=== PATIENT | male | born 1930 | race African-American/Black ===

== ENCOUNTER 2019-01-09 11:31 | Inpatient (IN) | payer OTHER ==
[~2019-01-09] VITALS: Ht 185.4 cm; Wt 88.5 kg
[2019-01-09 11:39] VITALS: BP 125/78
--- NOTE | 2019-01-09 11:40 | NUR ---
88 YO MALE BIB EMS FROM [facility] FOR ABNORMAL LABS LOW HGB 5.4. DENIES N/V/D; SKIN IS PINK/WARM/DRY; AAOX4 . LUNGS CLEAR BL. PT DENIES ANY FEVER, CP, SOB, OR COUGH AT THIS TIME; PATIENT STATES PAIN OF 0/10 AT THIS TIME; VSS; PATIENT POSITIONED FOR COMFORT; HOB ELEVATED; BEDRAILS UP X2; BED DOWN. ER MD MADE AWARE OF PT STATUS.
[2019-01-09] MEDS ORDERED: DOCU-299 PO (12:28)
[2019-01-09] MEDS ORDERED: METO-744 PO (12:28)
[2019-01-09] MEDS ORDERED: ASPI-1718 PO (12:28)
[2019-01-09] MEDS ORDERED: NITR0.4T2 SL (12:28)
[2019-01-09] MEDS ORDERED: NA P135N RC (12:28)
[2019-01-09] MEDS ORDERED: FERR325E14 PO (12:28)
[2019-01-09] MEDS ORDERED: ACET-2619 PO (12:28)
[2019-01-09] MEDS ORDERED: MAGN400T7 PO (12:28)
[2019-01-09] MEDS ORDERED: XALOS OP (12:28)
[2019-01-09] MEDS ORDERED: MAGN400S60 PO (12:28)
[2019-01-09] MEDS ORDERED: SPIR25TA PO (12:28)
[2019-01-09] MEDS ORDERED: BISA-213 RC (12:28)
[2019-01-09] MEDS ORDERED: MULT-1328 PO (12:28)
[2019-01-09] MEDS ORDERED: LISI5TAB18 PO (12:28)
--- NOTE | 2019-01-09 13:32 | NUR ---
REPORTED GIVEN TO DONNA MAHARAJ
--- NOTE | 2019-01-09 14:21 | NUR ---
DR. THOMPSON AT BEDSIDE PERFORMING RECTAL EXAM.
[2019-01-09 14:42] LABS: ALBUMIN 2.6 g/dL (3.4-5.0); ANION GAP 10.4 (8-16); ASPARTATE AMINOTRANSFERASE 61 U/L (15-37); CHLORIDE 106 mmol/L (98-107); CREATININE 0.9 mg/dL (0.7-1.3); GLUCOSE 79 mg/dL (74-106); POTASSIUM 4.4 mmol/L (3.5-5.1); SODIUM SERUM 138 mmol/L (136-145); TOTAL BILIRUBIN 0.2 mg/dL (0.0-1.0); UREA NITROGEN, BLOOD 20 mg/dL (7-18)
[2019-01-09 14:58] LABS: PROTHROMBIN TIME 11.4 secs (10.8-13.4)
[2019-01-09] MEDS ORDERED: HYDROcodone/APAP 7.5/325 MG 1 TAB PO PRN (15:00)
[2019-01-09] MEDS ORDERED: NACL 0.9% 1,000 ML IV SCH (15:00)
[2019-01-09] MEDS ORDERED: ONDANSETRON 4 MG/2 ML VIAL IVP PRN (15:00)
[2019-01-09] MEDS ORDERED: ACETAMINOPHEN 325 MG TAB PO PRN (15:00)
--- NOTE | 2019-01-09 15:28 | NUR ---
PT PULLED OUT IV TO LFA. REINSERTED TO LAC. COVERED AND PROTECTED WITH GAUZE.
--- NOTE | 2019-01-09 15:50 | NUR ---
Patient will be admitted to care of [facility]. Admited to MS. Will go to room 124 A. Belongings list completed. Report to DORON MEDINA.
[2019-01-09 16:06] LABS: FREE T4 (FREE THYROXINE) 1.13 ng/dL (0.76-1.46); MAGNESIUM 1.5 mg/dL (1.8-2.4); THYROID STIMULATING HORMONE 1.92 uIU/mL (0.34-3.74)
[2019-01-09] MEDS ORDERED: MAGNESIUM HYDROXIDE 2400 MG/30 ML UDC PO PRN (16:20)
[2019-01-09] MEDS ORDERED: NITROGLYCERIN 0.4 MG TAB SL SCH (16:20)
[2019-01-09] MEDS ORDERED: BISACODYL 10 MG SUPP RC PRN (16:20)
[2019-01-09] MEDS ORDERED: SODIUM PHOSPHATE 118 ML ENEM RC PRN (16:20)
--- NOTE | 2019-01-09 16:40 | NUR ---
RECEIVED PATIENT FROM ER. PATIENT IS AWAKE AND ALERT BUT EXHIBITS PERIODS OF CONFUSION. NO S/S OF DISTRESS. DENIES PAIN AT THIS TIME. FALL PRECAUTIONS IN PLACE. WILL CONTINUE TO MONITOR
[2019-01-09 16:49] VITALS: BP 151/62
--- NOTE | 2019-01-09 17:00 | NUR ---
PT BEING EVALUATED BY DR POLK
--- NOTE | 2019-01-09 18:35 | NUR ---
RECEIVED CALL FROM LAB HGB 6.6, HCT 24.0
--- NOTE | 2019-01-09 19:15 | NUR ---
PATIENT REPORT GIVEN AT BEDSIDE. PATIENT ENDORSED IN STABLE CONDITION
[2019-01-09 19:16] LABS: MEAN CORPUSCULAR HEMOGLOBIN 17 pg (27-31); MEAN CORPUSCULAR HGB CONC 28 g/dL (33-37); WHITE BLOOD COUNT (AUTO) 3.8 K/uL (4.8-10.8)
--- NOTE | 2019-01-09 19:16 | NUR ---
REPORT RECEIVED FROM AM NURSE AT BEDSIDE. PT IN STABLE CONDITION. AAOX1. INTRODUCED SELF TO PT. BOARD UPDATED. NO COMPLAINTS OF PAIN. NO SOB. AFEBRILE. PT CURRENTLY RECEIVING BLOOD. NO REACTIONS. PT IS STABLE AND STATES THAT HE FEELS FINE. IV SITE L FA 20G RUNNING BLOOD AT 120ML/HR. AFTER BLOOD HE WILL RECEIVE NS@50ML/HR. IV SITE PATENT AND INTACT. SKIN WARM, DRY, AND INTACT WITH NO OPEN WOUNDS. BED LOCKED IN LOW POSITION. CALL LORA WITHIN REACH. SAFETY PRECAUTIONS IN PLACE.
[2019-01-09 19:17] LABS: PLATELET COUNT (AUTO) 205 K/uL (140-450); RED BLOOD CELL COUNT(AUTO) 3.82 MIL/uL (4.20-6.10)
[2019-01-09] MEDS: ACETAMINOPHEN 325 MG TAB PO SCH (19:20)
[2019-01-09 19:21] LABS: HEMOGLOBIN 6.6 g/dL (12.0-18.0)
[2019-01-09 19:22] LABS: EOSINOPHILS % (MANUAL) 7 % (0-4); LYMPHOCYTES % (MANUAL) 17 % (20-46); MONOCYTES % (MANUAL) 9 % (5-12)
[2019-01-09] MEDS: MAGNESIUM OXIDE 400 MG TAB PO SCH (20:47)
[2019-01-09] MEDS: ASCORBIC ACID 500 MG TAB PO SCH (20:48)
[2019-01-09] MEDS: FERROUS SULFATE 325 MG TABEC PO SCH (20:48)
[2019-01-09] MEDS: FUROSEMIDE 20 MG TAB PO SCH (20:48)
--- NOTE | 2019-01-09 20:48 | NUR ---
LASIX, COLACE, FERROUS SULFATE, MAGOX, AND VITAMIN C GIVEN PO. PT TOLERATED WELL.
[2019-01-09] MEDS ORDERED: DOCUSATE SODIUM 100 MG GELCAP PO SCH (21:00)
[2019-01-09] MEDS ORDERED: MAGNESIUM OXIDE 400 MG PO SCH (21:00)
--- NOTE | 2019-01-09 21:30 | NUR ---
PT UNWRAPPED THE KERLIX AROUND HIS IV ATTEMPTING TO REMOVE HIS LINES. TOLD HIM NOT TO TOUCH THAT WRAP OR THE IV BECAUSE BLOOD IS NEED TO GIVE TO HIM THROUGH THE IV LINE. PT DOES NOT BELIEVE ME AND ASKED ME IF I AM QUALIFIED. PT IS CONFUSED. IV LINE IS REWRAPPED. WILL CONTINUE TO MONITOR.
--- NOTE | 2019-01-09 22:00 | NUR ---
BLOOD TRANSFUSION COMPLETE. POST BLOOD TRANSFUSION VS 133/52 HR 71, O2 SAT 98, TEMP 97.7, RR 16. PT TOLERATED BLOOD WELL. NO COMPLAINTS OF PAIN. NO SOB. AFEBRILE. MD NOTIFIED OF COMPLETION OF BLOOD TRANSFUSION. NEW ORDERS FOR LAB. WILL CONTINUE TO MONITOR.
--- NOTE | 2019-01-09 23:00 | NUR ---
PT SLEEPING COMFORTABLY IN BED. NO S/S OF DISTRESS NOTED. NO COMPLAINTS OF PAIN. NO SOB. AFEBRILE. WILL CONTINUE TO MONITOR.
[2019-01-10] VITALS: BP 141/54
[2019-01-10] MEDS: FUROSEMIDE 20 MG TAB PO SCH
--- NOTE | 2019-01-10 00:15 | NUR ---
CRITICAL LAB VALUE CALLED IN HGB 6.3 AND HCT 23.3. NOTIFIED. NEW ORDER OF 1 UNIT PRBC'S.
[2019-01-10 00:38] LABS: LYMPHOCYTES # (AUTO) 1.5 K/uL (2.0-11.5); MEAN CORPUSCULAR HGB CONC 27 g/dL (33-37); MONOCYTES # (AUTO) 0.4 K/uL (0.8-1.0); NEUTROPHILS # (AUTO) 1.6 K/uL (1.8-7.7); WHITE BLOOD COUNT (AUTO) 3.7 K/uL (4.8-10.8)
[2019-01-10 00:41] LABS: EOSINOPHILS # (AUTO) 0.1 K/uL (0-0.4); EOSINOPHILS % (AUTO) 3.9 % (0.0-4.0); LYMPHOCYTES % (AUTO) 40.6 % (20.5-51.1); MEAN CORPUSCULAR HEMOGLOBIN 17 pg (27-31); MEAN CORPUSCULAR VOLUME 63.4 fL (80-94); MONOCYTES % (AUTO) 11.6 % (1.7-9.3); NEUTROPHILS % (AUTO) 42.9 % (42.2-75.2); PLATELET COUNT (AUTO) 200 K/uL (140-450); RED BLOOD CELL COUNT(AUTO) 3.68 MIL/uL (4.20-6.10)
[2019-01-10 00:45] LABS: HEMATOCRIT 23.3 % (36-52); HEMOGLOBIN 6.3 g/dL (12.0-18.0)
--- NOTE | 2019-01-10 01:00 | NUR ---
CALLED [facility] TO CALL WHEN BLOOD IS READY.
--- NOTE | 2019-01-10 01:30 | NUR ---
OCCULT BLOOD COLLECTED AND SENT TO LAB.
[2019-01-10] MEDS: DEXT 5% / NACL 0.45% 500 ML IV SCH ×3 (02:00→22:19)
--- NOTE | 2019-01-10 02:00 | NUR ---
FUNMILAYOK CALLED TO INFORM ME THAT BLOOD IS READY.
--- NOTE | 2019-01-10 02:15 | NUR ---
INITIAL VS CHECK. BP 124/56, HR 61, RR 16, TEMP 97.1, 0/10 PAIN.
--- NOTE | 2019-01-10 02:20 | NUR ---
1 UNIT OF PRBC'S STARTED. SECONDARY NURSE CHECK COMPLETED.
--- NOTE | 2019-01-10 03:40 | NUR ---
1 HOUR 20 MINUTES INTO BLOOD TRANSFUSION. NO ADVERSE REACTION TO BLOOD. VS STABLE. WILL CONTINUE TO MONITOR.
[2019-01-10] MEDS ORDERED: FUROSEMIDE 20 MG TAB PO SCH (04:00)
[2019-01-10] MEDS: ACETAMINOPHEN 325 MG TAB PO SCH ×4 (04:00→08:00)
--- NOTE | 2019-01-10 06:10 | NUR ---
1 UNIT OF PRBC COMPLETE. NO S/S OF FEVER, FLUID OVERLOAD, OR ITCHINESS. PT TOLERATED WELL. VS STABLE. WILL CONTINUE TO MONITOR.
[2019-01-10 06:18] LABS: APPEARANCE,URINE HAZY (CLEAR); BILIRUBIN,URINE NEGATIVE (NEGATIVE); BLOOD, URINE NEGATIVE (NEGATIVE); COLOR,URINE YELLOW (YELLOW); LEUKOCYTE ESTERASE ,URINE TRACE (NEGATIVE); NITRITE, URINE NEGATIVE (NEGATIVE); PH,URINE 5.5 (5.0-9.0); UGLUCOSE NEGATIVE (NEGATIVE)
[2019-01-10 06:19] LABS: RBC,URINE 0-5 (RARE) /HPF (0-5)
--- NOTE | 2019-01-10 07:21 | NUR ---
REPORT GIVEN TO AM NURSE AT BEDSIDE. PT IN STABLE CONDITION.
--- NOTE | 2019-01-10 07:22 | NUR ---
RECEIVED BEDSIDE REPORT FROM JAMAL CALDERON. PT STABLE, AWAKE, AND ALERT. NO SIGNS OF DISTRESS NOTED. DENIES PAIN. NO REDNESS, SWELLING, OR INFLAMMATION NOTED ON IV SITE. BED IN LOW POSITION. CALL LIGHT WITHIN REACH. SAFETY MEASURES IN PLACE. PLAN OF CARE REVIEWED.
[2019-01-10 07:26] LABS: BASOPHILS # (AUTO) 0.1 K/uL (0.00-0.22); BASOPHILS % (AUTO) 1.7 % (0.0-2.0); LYMPHOCYTES # (AUTO) 1.3 K/uL (2.0-11.5); MEAN CORPUSCULAR HEMOGLOBIN 19 pg (27-31); MONOCYTES # (AUTO) 0.5 K/uL (0.8-1.0)
[2019-01-10 07:30] LABS: ANION GAP 8.8 (8-16); CARBON DIOXIDE 25.6 mmol/L (21-32); CHLORIDE 107 mmol/L (98-107); CREATININE 0.8 mg/dL (0.7-1.3); GLUCOSE 80 mg/dL (74-106); POTASSIUM 4.4 mmol/L (3.5-5.1); SODIUM SERUM 137 mmol/L (136-145); UREA NITROGEN, BLOOD 18 mg/dL (7-18)
[2019-01-10] MEDS ORDERED: BISACODYL 10 MG SUPP RC PRN (07:39)
[2019-01-10 07:40] LABS: EOSINOPHILS # (AUTO) 0.1 K/uL (0-0.4); EOSINOPHILS % (AUTO) 3.8 % (0.0-4.0); HEMATOCRIT 26.1 % (36-52); HEMOGLOBIN 7.5 g/dL (12.0-18.0); LYMPHOCYTES % (AUTO) 34.8 % (20.5-51.1); MEAN CORPUSCULAR HGB CONC 29 g/dL (33-37); MEAN CORPUSCULAR VOLUME 64.6 fL (80-94); MONOCYTES % (AUTO) 13.3 % (1.7-9.3); NEUTROPHILS # (AUTO) 1.7 K/uL (1.8-7.7); NEUTROPHILS % (AUTO) 46.4 % (42.2-75.2); RED BLOOD CELL COUNT(AUTO) 4.04 MIL/uL (4.20-6.10); RED CELL DISTRIBUTION WIDTH 29.1 % (11.6-13.7); WHITE BLOOD COUNT (AUTO) 3.7 K/uL (4.8-10.8)
[2019-01-10 07:41] LABS: PLATELET COUNT (AUTO) 188 K/uL (140-450)
[2019-01-10 07:43] LABS: MAGNESIUM 1.3 mg/dL (1.8-2.4); PHOSPHORUS 2.9 mg/dL (2.5-4.9)
--- NOTE | 2019-01-10 07:53 | NUR ---
PATIENT HAS BEEN SCREENED AND CATEGORIZED MODERATE NUTRITION RISK. PATIENT WILL BE SEEN WITHIN 3-5 DAYS OF ADMISSION. 01/12/[address]
[2019-01-10 08:00] VITALS: BP 134/50
--- NOTE | 2019-01-10 08:00 | NUR ---
BENADRYL AND TYLENOL NOT GIVEN DUE TO PT NOT ON BLOOD TRANSFUSION AT THIS TIME.
[2019-01-10] MEDS ORDERED: SODIUM FERRIC GLUCONATE 125 MG in NACL 0.9% 100 ML IV SCH (09:00)
[2019-01-10] MEDS ORDERED: NON-FORMULARY ITEM (Metoprolol Succinate (Metoprolol Succinate Er) 25 MG) PO SCH (09:00)
[2019-01-10] MEDS: LISINOPRIL 5 MG TAB PO SCH ×2 (09:00→09:57)
[2019-01-10] MEDS ORDERED: NON-FORMULARY ITEM (Multivitamin with Minerals (Multivitamins with Minerals) 1 TAB) PO SCH (09:00)
[2019-01-10] MEDS ORDERED: NITROGLYCERIN 0.4 MG TAB SL PRN (09:01)
[2019-01-10] MEDS: SPIRONOLACTONE 25 MG TAB PO SCH (09:56)
[2019-01-10] MEDS: DOCUSATE SODIUM 250 MG GELCAP PO SCH (09:57)
[2019-01-10] MEDS: MULTIVITAMIN/MINERALS 1 TAB PO SCH (09:57)
[2019-01-10] MEDS: MAGNESIUM OXIDE 400 MG TAB PO SCH ×2 (09:58→20:47)
[2019-01-10] MEDS: FERROUS SULFATE 325 MG TABEC PO SCH ×2 (09:58→20:47)
[2019-01-10] MEDS: ASCORBIC ACID 500 MG TAB PO SCH ×2 (09:58→20:47)
[2019-01-10] MEDS: LACTOBACILLUS RHAMNOSUS GG 1 EACH CAP PO SCH (09:59)
[2019-01-10] MEDS: ASPIRIN 81 MG TAB.CHEW PO SCH (10:00)
--- NOTE | 2019-01-10 10:05 | NUR ---
ADMINISTERED SCHEDULED MEDICATIONS. PT TOLERATED WELL. NO OTHER NEEDS AT THIS TIME.
[2019-01-10] MEDS: METOPROLOL SUCCINATE 50 MG TABER PO SCH (10:07)
--- NOTE | 2019-01-10 12:05 | NUR ---
ADMINISTERED REOCEPHIN TO PT ORDERED. TOLERATED WELL. NO SIGN OF DISTRESS NOTED . JAMAL [place] AWARE. WILL CONTINUE TO MONITOR PT.
--- NOTE | 2019-01-10 12:35 | NUR ---
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 Bryan stated patient does not have an existing Advance Directive in his chart at [facility] and his nephew Oneil Elaine is his health care decision maker.
[2019-01-10] MEDS: MAG SULF 2000 MG/WATER PREMIX 100 ML IV SCH ×2 (13:09→16:24)
--- NOTE | 2019-01-10 13:10 | NUR ---
PT REPOSITIONED, LINENS AND GOWN CHANGED. NO OTHER NEEDS AT THIS TIME.
--- NOTE | 2019-01-10 14:44 | NUR ---
DUE TO RECEIVING A FNS CONSULT, PATIENT HAS BEEN CATEGORIZED HIGH RISK. PATIENT WILL BE SEEN WITHIN 1-2 DAYS FROM RECEIVING CONSULTATION. 01/10/19-01/11/[address]
--- NOTE | 2019-01-10 15:10 | NUR ---
PT PULLED OUT LEFT FOREARM IV. CATHETER TIP INTACT, BLEEDING CONTROLLED. INSERTED NEW IV ON RIGHT FOREARM 22G. SALINE FLUSHED. NO REDNESS, SWELLING, OR INFLAMMATION NOTED ON IV SITE. PT TOLERATED WELL.
[2019-01-10 16:00] VITALS: BP 128/51
--- NOTE | 2019-01-10 16:30 | NUR ---
VITAL SIGNS TAKEN. PT STABLE, SLEEPING, BUT EASILY AROUSABLE. NO OTHER NEEDS AT THIS TIME.
--- NOTE | 2019-01-10 17:00 | NUR ---
ADMINISTERED 2ND BAG OF MAG-RIDER FOR MAGNESIUM LEVEL OF 1.3. PT TOLERATED WELL.
--- NOTE | 2019-01-10 19:25 | NUR ---
ENDORSED PT TO RN ABBIE FOR CONTINUITY OF CARE. PT STABLE, SLEEPING, BUT EASILY AROUSABLE.
--- NOTE | 2019-01-10 19:26 | NUR ---
RECEIVED REPORT FROM JAMAL URBAN FOR CONTINUITY OF CARE. PT A/OX2 ON ROOM AIR. PT IS ABLE TO MAKE NEEDS KNOWN, ABLE TO FOLLOW COMMANDS. PT IS ON BEDREST AND SKIN IS INTACT. PT HAS A 22G IV TO RIGHT FOREARM, ASYMPTOMATIC AND INTACT. VITAL SIGNS WITHIN NORMAL LIMITS. PT STABLE, DENIES HAVING ANY PAIN, NO SIGNS OF DISTRESS NOTED AT THIS TIME. PT POSITIONED FOR COMFORT. BED IN LOWEST POSITION, BED ALARM ON. WILL CONTINUE TO MONITOR.
[2019-01-10] MEDS: LATANOPROST 0.005% OP 2.5 ML BTL OP SCH (20:47)
--- NOTE | 2019-01-10 20:50 | NUR ---
ADMINISTERED SCHEDULED MEDICATIONS, PT TOLERATED WELL. BED IN LOWEST POSITION, BED ALARM ON. WILL CONTINUE TO MONITOR.
[2019-01-11] VITALS: BP 134/86
--- NOTE | 2019-01-11 | NUR ---
VITAL SIGNS WITHIN NORMAL LIMITS. PT STABLE, DENIES HAVING ANY PAIN, NO SIGNS OF DISTRESS NOTED AT THIS TIME. PT POSITIONED FOR COMFORT. BED IN LOWEST POSITION, BED ALARM ON. WILL CONTINUE TO MONITOR.
--- NOTE | 2019-01-11 02:14 | NUR ---
PT RESTING, NO SIGNS OF DISTRESS NOTED AT THIS TIME. PT POSITIONED FOR COMFORT. BED IN LOWEST POSITION, BED ALARM ON. WILL CONTINUE TO MONITOR.
--- NOTE | 2019-01-11 04:32 | NUR ---
PT STILL RESTING, DENIES PAIN. NO SIGNS OF DISTRESS NOTED AT THIS TIME. PT POSITIONED FOR COMFORT. BED IN LOWEST POSITION, BED ALARM ON. WILL CONTINUE TO MONITOR.
[2019-01-11] MEDS: DEXT 5% / NACL 0.45% 500 ML IV SCH ×2 (06:04→17:52)
[2019-01-11 06:33] LABS: BASOPHILS % (AUTO) 0.7 % (0.0-2.0); EOSINOPHILS # (AUTO) 0.2 K/uL (0-0.4); EOSINOPHILS % (AUTO) 3.3 % (0.0-4.0); HEMATOCRIT 28.5 % (36-52); LYMPHOCYTES % (AUTO) 37.1 % (20.5-51.1); MEAN CORPUSCULAR HEMOGLOBIN 19 pg (27-31); MEAN CORPUSCULAR HGB CONC 28 g/dL (33-37); MONOCYTES # (AUTO) 0.5 K/uL (0.8-1.0); MONOCYTES % (AUTO) 8.9 % (1.7-9.3); NEUTROPHILS # (AUTO) 2.8 K/uL (1.8-7.7); PLATELET COUNT (AUTO) 221 K/uL (140-450); RED BLOOD CELL COUNT(AUTO) 4.32 MIL/uL (4.20-6.10); RED CELL DISTRIBUTION WIDTH 29.1 % (11.6-13.7); WHITE BLOOD COUNT (AUTO) 5.5 K/uL (4.8-10.8)
[2019-01-11 06:37] LABS: ANION GAP 9.2 (8-16); CARBON DIOXIDE 27.1 mmol/L (21-32); CHLORIDE 105 mmol/L (98-107); CREATININE 0.9 mg/dL (0.7-1.3); GLUCOSE 82 mg/dL (74-106); POTASSIUM 4.3 mmol/L (3.5-5.1); SODIUM SERUM 137 mmol/L (136-145); UREA NITROGEN, BLOOD 21 mg/dL (7-18)
[2019-01-11 06:40] LABS: MAGNESIUM 1.9 mg/dL (1.8-2.4); PHOSPHORUS 2.8 mg/dL (2.5-4.9)
--- NOTE | 2019-01-11 07:38 | NUR ---
ENDORSED PT TO DAY SHIFT RN ALAINA FOR CONTINUITY OF CARE. PT IN STABLE CONDITION.
--- NOTE | 2019-01-11 07:39 | NUR ---
REPORT RECIVED FROM PLUMBING FOREMAN, PT SLEEPING QUIETLY, AROUSES EASILY BY VOICE, RESP EVEN UNLABORED, SKIN WARM DRY COLOR WNL, POC REVIEWED, ALL SAFETY MEASURES IN PLACE, NO IMMEDIATE NEEDS AT THIS TIME, WILL CONTINUE TO MONITOR.
[2019-01-11 08:00] VITALS: BP 118/44
[2019-01-11] MEDS: METOPROLOL SUCCINATE 50 MG TABER PO SCH (09:00)
[2019-01-11] MEDS: SPIRONOLACTONE 25 MG TAB PO SCH (09:00)
[2019-01-11] MEDS: LISINOPRIL 5 MG TAB PO SCH (09:00)
[2019-01-11] MEDS: SODIUM FERRIC GLUCONATE 125 MG in NACL 0.9% 100 ML IV SCH (09:17)
[2019-01-11] MEDS: MULTIVITAMIN/MINERALS 1 TAB PO SCH (09:19)
[2019-01-11] MEDS: FERROUS SULFATE 325 MG TABEC PO SCH ×2 (09:19→20:15)
[2019-01-11] MEDS: ASCORBIC ACID 500 MG TAB PO SCH ×2 (09:20→20:15)
[2019-01-11] MEDS: MAGNESIUM OXIDE 400 MG TAB PO SCH ×2 (09:20→20:15)
[2019-01-11] MEDS: LACTOBACILLUS RHAMNOSUS GG 1 EACH CAP PO SCH (09:20)
[2019-01-11] MEDS: DOCUSATE SODIUM 250 MG GELCAP PO SCH (09:20)
[2019-01-11] MEDS: ASPIRIN 81 MG TAB.CHEW PO SCH (09:21)
--- NOTE | 2019-01-11 09:53 | NUR ---
PT UP AMBULATING WITH WALKER WITH PHYSICAL THERAPY
--- NOTE | 2019-01-11 11:11 | NUR ---
Faxed to [facility] pt's face sheet, H&P, progress notes, labs, meds and ECG report.
--- NOTE | 2019-01-11 12:35 | NUR ---
PT SITTING UP EATING LUNCH WITH ASSISTANCE, GOOD APPETITE, NO C/O PAIN OR DISCOMFORT, NO NEEDS IDENTIFIED AT THIST TIME, WILL CONTINUE TO MONITOR.
--- NOTE | 2019-01-11 12:45 | NUR ---
Spoke with Bryan from [facility] informing me the pt will go to room 522 B if the urine cultures are negative. If the urine cultures are positive, we have to call [facility] for another room. We will call [facility] once the pt is discharge.
--- NOTE | 2019-01-11 14:01 | NUR ---
01/11/19 RD INITIAL ASSESSMENT COMPLETED PLEASE REFER TO NUTRITION ASSESSMENT UNDER CARE ACTIVITY FOR ESTIMATED NUTRITIONAL NEEDS. 1. RECOMMEND CARDIAC DIET 2. RD TO FOLLOW-UP 5-7 DAYS, LOW RISK CHELE RON, RD
[2019-01-11 16:00] VITALS: BP 105/59
--- NOTE | 2019-01-11 18:20 | NUR ---
PT TO CT IN BED
--- NOTE | 2019-01-11 18:45 | NUR ---
PT RETURNED BACK TO ROOM, NOW EATING DINNER WITH ASSIST, GOOD APPETITE, PT OX2, SPEAKS CLEARLY, BILAT KINESIOTHERAPIST STRONG, BILAT LEG STRONG, FACE SYMMETRICAL SMILE AND RAISES OF EYE BROWS.
--- NOTE | 2019-01-11 19:28 | NUR ---
REPORT GIVEN TO PLUMBING INSPECTOR NURSE CHAVO WALLACE IN STABLE CONDITION.
--- NOTE | 2019-01-11 19:59 | NUR ---
RECEIVED FROM AM RN IN BED AWAKE AND ALERT. SITTING IN BED. BED ALARM ON. LEGALLY BLIND. CALL LIGHT WITH IN REACH. DX. OF SEVERE ANEMIA. ENCOURAGED TO CALL FOR ANY HELP HE MAY NEED. IVF SITE TO LEFT FOREARM # 20. NEEDS WILL BE ANTICIPATED AND WILL BE MET.
[2019-01-11] MEDS: LATANOPROST 0.005% OP 2.5 ML BTL OP SCH (20:16)
--- NOTE | 2019-01-11 20:21 | NUR ---
ADMINISTERED P.O. MEDICATIONS FOR THE NIGHT. TOLERATED WELL. KEPT COMFORTABLE.
[2019-01-11] MEDS ORDERED: CEFT1SOL1 IV (21:48)
[2019-01-11] MEDS ORDERED: VITC500 PO (21:48)
[2019-01-11] MEDS ORDERED: LACT10CA PO (21:48)
--- NOTE | 2019-01-11 22:00 | NUR ---
PT. TURNED BY CNAS. KEPT CLEAN AND DRY FROM URINE. INCONTINENT. NEEDS WILL BE ANTICIPATED AND MET. PT. ABLE TO VERBALIZE NEEDS WELL IN [place]. ALERT AND ORIENTED . LEGALLY BLIND.
[2019-01-12 00:52] VITALS: BP 95/52
--- NOTE | 2019-01-12 01:00 | NUR ---
PT. SLEEPING AT THIS TIME. WOKE UP EASILY WHEN VITAL SIGNS TAKEN. NEEDS ANTICIPATED. TURNED BY CNAS Q 2H. TOTAL CARE.
--- NOTE | 2019-01-12 03:03 | NUR ---
SLEEPING. NO RESTLESSNESS. NO COMPLAINT DONE . NEEDS ATTENDED TO. TURNED TO SIDES BY CNAS. PILLOW SUPPORT TO PRESSURE AREAS.
[2019-01-12] MEDS: DEXT 5% / NACL 0.45% 500 ML IV SCH ×2 (03:20→13:20)
[2019-01-12 04:06] LABS: FOLIC ACID 12.5 ng/mL (>3.0)
--- NOTE | 2019-01-12 05:50 | NUR ---
AM HYGIENE RENDERED BY CNAS. NEEDS ANTICIPATED AND MET. TOTAL CARE. SLEPT WELL THIS SHIFT. NO PAIN COMPLAINT DONE.
--- NOTE | 2019-01-12 07:26 | NUR ---
RECEIVED REPORT FROM ALODIZE MACHINE HELPER NURSE FOR CONTINUITY OF CARE. PT IN STABLE CONDITION. RESPIRATIONS EVEN AND UNLABORED. IV INTACT AND PATENT. SAFETY MEASURES IN PLACE. CALL LIGHT AT BEDSIDE. BED IN LOW POSITION. WILL CONTINUE TO MONITOR.
[2019-01-12 08:00] VITALS: BP 127/44
[2019-01-12 08:03] LABS: MAGNESIUM 1.8 mg/dL (1.8-2.4); PHOSPHORUS 2.4 mg/dL (2.5-4.9)
[2019-01-12 08:09] LABS: ANION GAP 10.2 (8-16); CARBON DIOXIDE 25.2 mmol/L (21-32); CHLORIDE 107 mmol/L (98-107); CREATININE 0.8 mg/dL (0.7-1.3); GLUCOSE 79 mg/dL (74-106); POTASSIUM 4.4 mmol/L (3.5-5.1); SODIUM SERUM 138 mmol/L (136-145); UREA NITROGEN, BLOOD 17 mg/dL (7-18)
[2019-01-12 08:53] LABS: BASOPHILS # (AUTO) 0.1 K/uL (0.00-0.22); BASOPHILS % (AUTO) 1.2 % (0.0-2.0); EOSINOPHILS # (AUTO) 0.2 K/uL (0-0.4); EOSINOPHILS % (AUTO) 3.4 % (0.0-4.0); HEMATOCRIT 25.9 % (36-52); LYMPHOCYTES # (AUTO) 2.1 K/uL (2.0-11.5); LYMPHOCYTES % (AUTO) 37.3 % (20.5-51.1); MEAN CORPUSCULAR HEMOGLOBIN 18 pg (27-31); MEAN CORPUSCULAR HGB CONC 27 g/dL (33-37); MEAN CORPUSCULAR VOLUME 66.9 fL (80-94); MONOCYTES # (AUTO) 0.5 K/uL (0.8-1.0); MONOCYTES % (AUTO) 8.1 % (1.7-9.3); NEUTROPHILS # (AUTO) 2.9 K/uL (1.8-7.7); PLATELET COUNT (AUTO) 210 K/uL (140-450); RED BLOOD CELL COUNT(AUTO) 3.88 MIL/uL (4.20-6.10); RED CELL DISTRIBUTION WIDTH 29.2 % (11.6-13.7); WHITE BLOOD COUNT (AUTO) 5.8 K/uL (4.8-10.8)
[2019-01-12 08:57] LABS: HEMOGLOBIN 7.2 g/dL (12.0-18.0)
[2019-01-12] MEDS: SPIRONOLACTONE 25 MG TAB PO SCH (09:00)
[2019-01-12] MEDS: LISINOPRIL 5 MG TAB PO SCH (09:00)
[2019-01-12] MEDS: METOPROLOL SUCCINATE 50 MG TABER PO SCH (09:00)
[2019-01-12] MEDS: SODIUM FERRIC GLUCONATE 125 MG in NACL 0.9% 100 ML IV SCH (09:00)
--- NOTE | 2019-01-12 09:00 | NUR ---
IV REMOVED BY PT BY ACCIDENT AT THIS TIME. NO INJURY TO SITE NOTED. PT IN STABLE CONDITION. WILL CONTINUE TO MONITOR. BED IN LOW POSITION. CALL LIGHT AT BEDSIDE.
[2019-01-12] MEDS ORDERED: SODIUM PHOS / POTASSIUM PHOS 1 PKT PDR PO SCH (09:27)
[2019-01-12] MEDS: LACTOBACILLUS RHAMNOSUS GG 1 EACH CAP PO SCH (10:44)
[2019-01-12] MEDS: ASPIRIN 81 MG TAB.CHEW PO SCH (10:45)
[2019-01-12] MEDS: MULTIVITAMIN/MINERALS 1 TAB PO SCH (10:45)
[2019-01-12] MEDS: DOCUSATE SODIUM 250 MG GELCAP PO SCH (10:45)
[2019-01-12] MEDS: ASCORBIC ACID 500 MG TAB PO SCH (10:46)
[2019-01-12] MEDS ORDERED: SODIUM FERRIC GLUCONATE 12.5 MG/ML AMP IV ONE (10:47)
[2019-01-12] MEDS: FERROUS SULFATE 325 MG TABEC PO SCH (10:47)
[2019-01-12] MEDS: MAGNESIUM OXIDE 400 MG TAB PO SCH (10:47)
--- NOTE | 2019-01-12 11:11 | NUR ---
SPOKE WITH MAGDA FROM [facility] FOR DISCHARGE TRANSPORT FOR PT. MAGDA WILL CALL BACK WITH SET TIME OF [employer].
--- NOTE | 2019-01-12 13:15 | NUR ---
PT LYING IN BED IN STABLE CONDITION. RESPIRATIONS EVEN AND UNLABORED. WILL CONTINUE TO MONITOR. BED IN LOW POSITION. CALL LIGHT AT BEDSIDE. BED ALARM ON.
--- NOTE | 2019-01-12 15:20 | NUR ---
SPOKE TO CECILIA TO GIVE REPORT FOR CONTINUITY OF CARE. RN WAS NOT AVAILABLE FOR REPORT FOR TRANSFERRING PT. MST NUMBER LEFT TO [facility] NURSE FOR CALL BACK.
--- NOTE | 2019-01-12 16:12 | NUR ---
CALLED [facility] AND GAVE REPORT TO DENG DELONG, ALL QUESTION ASKED ARE ANSWERED.
--- NOTE | 2019-01-12 16:15 | NUR ---
GAVE DISCHARGE INSTRUCTIONS TO PT. PT VERBALIZED UNDERSTANDING OF INSTRUCTIONS. PT IS BLIND AND UNABLE TO SIGN PAPERWORK AT THIS TIME. ID BAND REMOVED. PT LOADING ONTO GURNEY. GAVE REPORT TO TRANSPORT TEAM FOR CONTINUITY OF CARE. PT IN STABLE CONDITION.
== END 2019-01-12 16:15 | DRG 811 ==
LOC: MED 11:31 → MTU 15:08
PROVIDERS: ADMIT General Practice; ATTEND General Practice
PROC: 30233N1 Transfusion of Nonautologous Red Blood Cells into Peripheral Vein, Percutaneous Approach (ICD-10-PCS; principal; 2019-01-09)
DX: D50.9 Iron deficiency anemia, unspecified (principal); E43 Unspecified severe protein-calorie malnutrition; N39.0 Urinary tract infection, site not specified; I42.9 Cardiomyopathy, unspecified; Z68.25 Body mass index [BMI] 25.0-25.9, adult; E83.42 Hypomagnesemia; F03.90 Unspecified dementia, unspecified severity, without behavioral disturbance, psychotic disturbance, mood disturbance, and anxiety; I10 Essential (primary) hypertension; E78.5 Hyperlipidemia, unspecified; H26.9 Unspecified cataract; K59.00 Constipation, unspecified; R91.1 Solitary pulmonary nodule; E83.39 Other disorders of phosphorus metabolism; Z79.82 Long term (current) use of aspirin; Z79.899 Other long term (current) drug therapy
CPT/HCPCS: 36415; 70450; 71045; 80048; 80053; 81001; 82150; 82272; 82607; 82728; 82746; 83036; 83540; 83690; 83735; 83880; 84100; 84439; 84443; 84484; 85025; 85045; 85610; 85730; 86886; 86900; 86901; 86920; 87081; 87086; 87186; 93005; 97110; 97116; 97530; 99285; J0696; J1644; J2916; J3475; J7030; J7060; P9016; P9038; Q0092; Q0163